=== PATIENT | male | born 1960 | race Caucasian/White ===

== ENCOUNTER 2018-08-09 11:14 | Emergency (ER) | payer SELFPAY ==
[2018-08-09] MEDS ORDERED: Sodium Chloride 0.9% 10 ML Syringe FLUSH PRN (11:40)
[2018-08-09] MEDS ORDERED: Sodium Chloride 0.9% 500 ML IV ONE (11:40)
[2018-08-09] MEDS ORDERED: Aspirin 81 MG Tab.Chew PO ONE (11:41)
[2018-08-09] MEDS ORDERED: Nitroglycerin 0.4 MG Tab.SL SL ONE (11:41)
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
[2018-08-09] MEDS ORDERED: Pantoprazole 40 MG Vial IVPUSH ONE (12:02)
[2018-08-09] MEDS ORDERED: Iopamidol 755 Mg/ML 100 ML Bottle IV ONE (12:51)
--- NOTE | 2018-08-09 14:39 | CT ---
INDICATION: Chest pain. COMPUTERIZED TOMOGRAPHY ANGIOGRAPHY OF THE CHEST WITH IV CONTRAST: Spiral 3.75 mm axial sections were obtained through the chest with 100 mL Isovue 370 at 3 mL /second with sagittal and coronal reconstructions, 08/09/18 - no comparisons. Total exam DLP = 1,823.37 mGy-cm. An active infiltrate or effusion was not identified in the lungs or pleural spaces. No definite mediastinal mass was identified. Minimal mediastinal lymphadenopathy is nonspecific. The heart did not appear enlarged. No pericardial effusion was seen. The aorta was not dilated. No definite dissection could be identified. IMPRESSION: Normal CT angiography of the chest with IV contrast. Report was called to Dr. Saalzar at 1350 hours on 08/09/18. [facility]
--- NOTE | 2018-08-09 14:52 | CT ---
INDICATION: Pain, question aorta. COMPUTERIZED TOMOGRAPHY ANGIOGRAPHY OF THE ABDOMEN AND PELVIS WITH CONTRAST: Spiral 3.75 mm axial sections were obtained through the abdomen and pelvis with 100 mL Isovue 370 at 3 mL/second, as injected for CTA of the chest. Additional volume rendering reconstructions were utilized for 3-D evaluation of the aorta and branches. Total exam DLP = 1,823.37 mGy-cm. The abdominal aorta was normal in appearance. No significant atherosclerotic changes were identified, except for some minimal calcification along the posterior wall of the aorta. No evidence of aneurysmal dilatation of the aorta is seen. The appendix is absent, compatible with history of its removal. The gallbladder is absent, compatible with history of cholecystectomy. The liver is relatively low in density, raising question of fatty liver. No focal liver lesions were identified. The spleen, pancreas, adrenals, and kidneys appeared to be normal. No retroperitoneal masses were seen. Minimal retroperitoneal lymphadenopathy is noted, which is nonspecific. No free air or bowel obstruction was seen. The urinary bladder wall appears to be thickened, raising question of cystitis. The prostate did not appear to be enlarged, although there is some minimal calcification in the prostate. IMPRESSION: 1. No evidence of arteriosclerotic changes of any gross significance. No abdominal aortic aneurysm or dissection was noted. 2. Fatty liver suggested. 3. Thickened wall of urinary bladder is suggested, which may be on the basis of cystitis and should be correlated clinically. Report was called to Dr. Salazar at 1350 hours on 08/09/18. [facility]
--- NOTE | 2018-08-09 14:56 | CR ---
INDICATION: Chest pain. CHEST: An AP upright view of the chest was obtained 08/09/18 - no comparisons. Evidence of exogenous obesity is suggested. The heart appears somewhat prominent in size but is emphasized by poor inspiration and AP positioning. The aorta is minimally tortuous. There is some widening of the mediastinum, which is likely on the basis of vascular structures. An active infiltrate or effusion was not identified. Overlying EKG leads are noted. IMPRESSION: No acute process. Report was called to Dr. Salazar at 1350 hours on 08/09/18. [facility]
[2018-08-09] MEDS ORDERED: Morphine 4 MG/ML Syringe IVPUSH ONE (15:22)
[2018-08-09] MEDS ORDERED: Ondansetron 4 MG/2 ML SDV IVPUSH ONE (15:22)
[2018-08-09] MEDS ORDERED: Morphine 10 MG/ML Syringe IVPUSH ONE (15:33)
[2018-08-09] MEDS ORDERED: Morphine 10 MG/ML SDV ONE (15:36)
== END 2018-08-09 16:48 ==
LOC: FB.ED 11:14
DX: R07.2 Precordial pain (principal); R55 Syncope and collapse; E11.9 Type 2 diabetes mellitus without complications; I10 Essential (primary) hypertension; Z88.8 Allergy status to other drugs, medicaments and biological substances; Z79.899 Other long term (current) drug therapy; Z79.4 Long term (current) use of insulin
CPT/HCPCS: 36410; 36415; 71045; 71275; 74174; 80053; 81001; 84484; 85025; 85379; 85610; 85730; 93005; 96361; 96374; 96375; 99285; A9270; C9113; J2270; J2405; J7040; Q9967